=== PATIENT | female | born 1945 | race Caucasian/White ===

== ENCOUNTER 2016-09-09 04:51 | Inpatient (IN) ==
[2016-09-04 15:54] LABS: Basophils # (Auto) 0 K/mcL (0.0-0.3); Basophils % (Auto) 0.6 % (0.0-2.0); Eosinophils # (Auto) 0.1 K/mcL (0.0-0.7); Eosinophils % (Auto) 1.4 % (0.0-7.0); Granulocytes % (Auto) 45.1 % (38.0-78.0); Lymphocytes # (Auto) 3.4 K/mcL (1.5-4.8); Lymphocytes % (Auto) 47.7 % (15.5-49.0); Mean Cell Volume 93.7 fL (80.0-100.0); Mean Corpuscular HGB Conc 33.7 g/dL (31.0-36.0); Mean Corpuscular Hemoglobin 31.6 pg (26.0-34.0); Monocytes # (Auto) 0.4 K/mcL (0.1-0.9); Monocytes % (Auto) 5.2 % (1.0-12.0); Platelet Count 296 K/mcL (140-440); RBC 4.72 M/mcL (4.00-5.20); Red Cell Distribution Width 13.2 % (11.5-14.5)
[2016-09-04 15:55] LABS: Appearance,Urine CLEAR; Bacteria,Urine 0 /hpf (0); Bilirubin,Urine NEG (NEG); Color,Urine YELLOW; Glucose,Urine (UA) NEGATIVE (NEG); Leukocyte Esterase,Urine 75 /uL (NEG); Mucus,Urine FEW /hpf (0); Nitrate,Urine NEG (NEG); Protein,Urine NEG (NEG); Specific Gravity,Urine 1.023 (1.000-1.035); Urine Blood NEG mg/dL (<0.03); Urine Hyaline Cast 2 /lpf (0-2); Urine RBC 1 /hpf (0-1); Urine Squamous Epithelial Cell 8 /hpf (0-4); Urine Transitional Epi Cells 1 /hpf (0-2); Urine WBC 10 /hpf (0-4); Urobilinogen,Urine NEG (NEG)
[2016-09-04 16:06] LABS: Blood Urea Nitrogen 12 mg/dl (8-23)
[2016-09-09] MEDS ORDERED: PREGABALIN 75 MG CAPSULE PO SCH (06:00)
[2016-09-09] MEDS ORDERED: ceFAZolin 1 GM VIAL IV SCH (06:00)
[2016-09-09] MEDS ORDERED: ACETAMINOPHEN 500 MG TABLET PO SCH (06:00)
[2016-09-09] MEDS ORDERED: CELECOXIB 200 MG CAPSULE PO SCH (06:00)
[2016-09-09] MEDS ORDERED: oxyCODONE 10 MG TAB.ER.12H PO SCH (06:00)
[2016-09-09] MEDS ORDERED: GENTAMICIN SULFATE 800 MG/20 ML VIAL IR ONE (06:52)
[2016-09-09] MEDS ORDERED: SUCCINYLCHOLINE 20 MG/ML ML IV ONE (07:40)
[2016-09-09] MEDS ORDERED: TRANEXAMIC ACID 1,000 MG/10 ML VIAL IV ONE ×2 (07:40→09:15)
[2016-09-09] MEDS ORDERED: DEXAMETHASONE 10 MG/ML VIAL IV ONE (07:40)
[2016-09-09] MEDS ORDERED: MIDAZOLAM 5 MG/5 ML VIAL IV ONE (07:40)
[2016-09-09] MEDS ORDERED: LIDOCAINE HCL/PF 100 MG/5 ML SYRINGE IV ONE (07:40)
[2016-09-09] MEDS ORDERED: ROCURONIUM 10 MG/ML ML IV ONE (07:40)
[2016-09-09] MEDS ORDERED: PHENYLEPHRINE 10 MG/ML VIAL IV ONE (07:40)
[2016-09-09] MEDS ORDERED: PROPOFOL 200 MG/20 ML VIAL IV ONE (07:40)
[2016-09-09] MEDS ORDERED: MEPERIDINE 25 MG/ML SYRINGE IV PRN (08:33)
[2016-09-09] MEDS ORDERED: ONDANSETRON 4 MG/2 ML VIAL IV PRN ×2 (08:33→09:15)
[2016-09-09] MEDS ORDERED: LACTATED RINGERS 250 ML IV PRN (08:33)
[2016-09-09] MEDS ORDERED: NALOXONE HCL 0.4 MG/ML VIAL IV PRN (08:33)
[2016-09-09] MEDS ORDERED: diphenhydrAMINE 50 MG/ML VIAL IV PRN (08:33)
[2016-09-09] MEDS ORDERED: fentaNYL 100 MCG/2 ML VIAL IV PRN (08:33)
[2016-09-09] MEDS ORDERED: MEPERIDINE 50 MG/ML SYRINGE IM ONE (08:33)
[2016-09-09] MEDS ORDERED: BENZOCAINE/MENTHOL 1 LOZENGE PO PRN ×2 (08:33→09:15)
[2016-09-09] MEDS ORDERED: ePHEDrine 50 MG/ML AMPUL IV PRN (08:33)
[2016-09-09] MEDS ORDERED: FLUMAZENIL 0.1 MG/ML ML IV PRN (08:33)
[2016-09-09] MEDS ORDERED: IPRATROPIUM/ALBUTEROL 3 ML AMPUL.NEB NEB PRN (08:33)
[2016-09-09] MEDS ORDERED: HYDROmorphone 2 MG/ML SYRINGE IV PRN ×2 (08:33→09:15)
[2016-09-09] MEDS ORDERED: METOCLOPRAMIDE 10 MG/2 ML VIAL IV PRN (08:33)
[2016-09-09] MEDS ORDERED: METHOCARBAMOL 1,000 MG/10 ML VIAL IV PRN (08:33)
[2016-09-09] MEDS ORDERED: LACTATED RINGERS 1,000 ML IV SCH (08:45)
[2016-09-09] MEDS ORDERED: POLYETHYLENE GLYCOL 3350 17 GM PACKET PO PRN (09:15)
[2016-09-09] MEDS ORDERED: MAGNESIUM HYDROXIDE 30 ML ORAL.SUSP PO PRN (09:15)
[2016-09-09] MEDS ORDERED: TEMAZEPAM 15 MG CAPSULE PO PRN (09:15)
[2016-09-09] MEDS ORDERED: FLEETS ADULT ENEMA PR PRN (09:15)
[2016-09-09] MEDS ORDERED: ACETAMINOPHEN 325 MG TABLET PO PRN ×2 (09:15→09:19)
[2016-09-09] MEDS ORDERED: BISACODYL 10 MG SUPP.RECT PR PRN (09:15)
--- NOTE | 2016-09-09 09:15 | Brief Operative Note ---
Date of procedure: 09/09/16 Pre-op diagnosis: Left hip djd Post-op diagnosis: same Procedure: left kelsie cemented Grafts/Implants: Yes Anesthesia: GETA Complications: none Complications Description: 09/09/16 09:15 none Surgeon: Rj Apodaca Consultant In Ergonomics And Safety: Yannick Chao Estimated blood loss (cc): 150 Specimens Removed/Pathology: none sent Condition: stable Disposition: PACU
[2016-09-09] MEDS ORDERED: traMADol 50 MG TABLET PO PRN (09:19)
--- NOTE | 2016-09-09 09:36 | XRay Report ---
CLINICAL INFORMATION: Postsurgical follow-up COMPARISON: None. FINDINGS: Single intraoperative AP pelvis. Status post left total hip arthroplasty IMPRESSION: Intraoperative evaluation. Left total arthroplasty performed. Interpreted and Authenticated by: Neil Robles 09/09/16
--- NOTE | 2016-09-09 10:13 | XRay Report ---
CLINICAL INFORMATION: Postsurgical follow-up. TECHNIQUE: AP pelvis. Lateral left hip COMPARISON: None. FINDINGS: Status post left total hip arthroplasty. Alignment is anatomic. There is postsurgical soft tissue and intra-articular gas. IMPRESSION: Post left total hip arthroplasty. Interpreted and Authenticated by: Neil Robles 09/09/16
[2016-09-09] MEDS: 0.45 % SODIUM CHLORIDE 1,000 ML IV SCH ×2 (10:48→20:19)
[2016-09-09] MEDS: KETOROLAC 15 MG/ML VIAL IV PRN ×2 (10:50→16:53)
[2016-09-09] MEDS: HYDROcodone/APAP 10/325MG TABLET PO PRN ×3 (13:12→23:34)
[2016-09-09] MEDS: 0.9 % SODIUM CHLORIDE 10 ML SYRINGE IV SCH ×2 (13:13→20:08)
--- NOTE | 2016-09-09 15:27 | Discharge Summary ---
Ortho Discharge - NONI - Patient Instructions Diet: Regular Diet Activity: activity as tolerated, weight bearing as tolerated Total Hip Protocol: Follow activity instructions as provided by Physical Therapy. Dressing Care: May shower in 2 days - Follow Up Plan Disposition: Home, Self-Care Prognosis: Good Rehab Potential: Good I certify that the patient requires SNF services: No Overall status at discharge: patient is progressing back to baseline - Orders For Discharge Prescriptions: Aspirin [Ecotrin] 325 mg PO BID #60 tab.ec Docusate Sodium [Colace] 100 mg PO BID #60 capsule HYDROcodone/APAP 10/325MG [Dickens 10/325Mg] 1 - 2 tab PO Q4HP PRN #75 tablet PRN Reason: Pain
[2016-09-09] MEDS: ceFAZolin 1 GM VIAL IV SCH ×2 (15:55→22:24)
[2016-09-09] MEDS: SENNOSIDES 1 TABLET PO SCH (20:07)
[2016-09-09] MEDS: ASPIRIN 325 MG ENTERIC COATED TABLET PO SCH (20:07)
[2016-09-09] MEDS: DOCUSATE SODIUM 100 MG CAPSULE PO SCH (20:07)
[2016-09-09] MEDS: oxyCODONE 10 MG TAB.ER.12H PO SCH (20:08)
[2016-09-10] MEDS: 0.9 % SODIUM CHLORIDE 10 ML SYRINGE IV SCH ×3 (06:03→22:00)
[2016-09-10] MEDS: HYDROcodone/APAP 10/325MG TABLET PO PRN ×2 (06:50→17:00)
[2016-09-10] MEDS: PANTOPRAZOLE 40 MG TABLET PO SCH (06:51)
[2016-09-10] MEDS: KETOROLAC 15 MG/ML VIAL IV PRN ×2 (06:51→18:07)
--- NOTE | 2016-09-10 07:12 | Orthopedic Progress Note ---
Subjective Patient information: Note initiated : 09/10/16 at 7:10 am Service Date, if different from initiated Date: [] Patient: Lakisha Booker 71 y/o F admitted on 09/09/16 for Left Total Hip Arthroplasty Using Direct Superior . Chief Complaint: [Pt is stable this morning on post operative day 1 without any significant concerns or complaints. Patients vital signs have remained stable. Patients dressing is dry and exhibits a grossly intact neurovascular and neuromotor exam. Patients 10 point ROS is otherwise negative. ] Objective Vital signs: Vital Signs Temp Pulse Resp BP BP Pulse Ox 09/10/16 07:10 91 09/10/16 07:01 94 09/10/16 06:57 94 09/10/16 06:52 97.2 F L 59 L 14 134/74 99 09/10/16 06:15 94 09/10/16 03:48 97.8 F 66 14 122/76 98 09/10/16 03:25 95 09/10/16 02:32 96 09/10/16 02:30 84 L 09/10/16 01:47 94 09/09/16 23:49 91 09/09/16 23:12 98.4 F 78 14 150/73 95 09/09/16 23:00 95 09/09/16 21:35 93 09/09/16 19:45 92 09/09/16 19:27 97.9 F 80 14 123/76 93 09/09/16 19:00 93 09/09/16 17:00 95 09/09/16 16:00 97.6 F 77 136/70 95 09/09/16 15:00 94 09/09/16 12:27 80 117/65 97 09/09/16 12:12 66 150/81 97 09/09/16 11:58 63 136/70 95 09/09/16 11:43 60 134/77 97 09/09/16 11:34 62 135/68 96 09/09/16 11:25 64 133/79 92 09/09/16 11:16 95 09/09/16 11:13 60 133/69 96 09/09/16 10:58 65 124/65 92 09/09/16 10:42 62 18 137/71 95 09/09/16 10:18 98.0 F 66 18 138/55 96 09/09/16 10:05 68 17 121/51 93 09/09/16 09:50 68 15 137/57 96 09/09/16 09:35 97.3 F L 76 12 128/64 95 09/09/16 09:16 93 Intake and Output 09/09/16 09/10/16 09/10/16 21:59 05:59 13:59 Intake Total 2252 / 2252 150 / 150 Output Total 200 / 200 1250 / 1250 300 / 300 Balance 2051 -1100 / -1100 -300 / -300 Intake: IV 952 / 952 Sodium Chloride 0.45% 1, 952 / 952 000 ml @ 100 mls/hr IV . Q10H [facility] Rx#:[id number] Oral 1300 / 1300 150 / 150 Output: Void Amount 200 / 200 1250 / 1250 300 / 300 Other: Meal Dinner Percent of Meal Consumed 100% Feeding Ability Independent # Voids 1 Weight 274 lb Intake & Output: Intake & Output 09/09/16 09/10/16 09/10/16 21:59 05:59 13:59 Intake Total 2252 / 2252 150 / 150 Output Total 200 / 200 1250 / 1250 300 / 300 Balance 2051 -1100 / -1100 -300 / -300 Weight 274 lb Intake: IV 952 / 952 Sodium Chloride 0.45% 1, 952 / 952 000 ml @ 100 mls/hr IV . Q10H CRAIG Rx#:[id number] Oral 1300 / 1300 150 / 150 Output: Void Amount 200 / 200 1250 / 1250 300 / 300 Other: Meal Dinner Percent of Meal Consumed 100% Feeding Ability Independent # Voids 1 Incision: Yes healing Incision clean and dry: Yes Dressing: Yes clean, Yes dry Weight bearing status: full Neurological exam IM: Yes motor sensory intact, Yes neurovascular intact Extremities exam IM: Yes Foot pink and warm, Yes neurovascular intact - Labs CBC & BMP: 09/10/16 05:05 09/04/16 14:13 Labs: Orthopedic Labs 09/04/16 14:13 PT 13.0 INR 1.0 APTT 34 09/10/16 09/04/16 05:05 14:13 Hgb 14.9 Hct 35.5 L 44.2 Assessment and Plan (1) Hx of total hip arthroplasty Patient has been educated regarding wound care and dressings, follow up recommendations, and medication use. We will f/u with the patient within 2-3 weeks for wound check. Status: Acute
[2016-09-10] MEDS: oxyCODONE 10 MG TAB.ER.12H PO SCH ×2 (08:10→20:16)
[2016-09-10] MEDS: ASPIRIN 325 MG ENTERIC COATED TABLET PO SCH ×2 (08:10→20:16)
[2016-09-10] MEDS: DOCUSATE SODIUM 100 MG CAPSULE PO SCH ×2 (08:10→20:16)
[2016-09-10] MEDS: HYDROCHLOROTHIAZIDE 12.5 MG CAPSULE PO SCH (08:11)
[2016-09-10] MEDS: amLODIPine 10 MG TABLET PO SCH (08:11)
[2016-09-10] MEDS ORDERED: GLUCOSAMINE 1000 MG PO SCH (09:00)
[2016-09-10] MEDS: SENNOSIDES 1 TABLET PO SCH (20:16)
[2016-09-11] MEDS: HYDROcodone/APAP 10/325MG TABLET PO PRN ×2 (03:07→07:52)
[2016-09-11] MEDS: 0.9 % SODIUM CHLORIDE 10 ML SYRINGE IV SCH (05:38)
--- NOTE | 2016-09-11 07:26 | Orthopedic Progress Note ---
Subjective Patient information: Note initiated : 09/11/16 at 7:24 am Service Date, if different from initiated Date: [] Patient: Lakisha Booker 71 y/o F admitted on 09/09/16 for Left Total Hip Arthroplasty Using Direct Superior . Chief Complaint: [Alert and walking well with minimal pain and tolerating a normal diet] Objective Vital signs: Vital Signs Temp Pulse Resp BP Pulse Ox 09/11/16 04:27 96 09/11/16 03:17 97.4 F L 72 20 127/72 95 09/11/16 02:12 95 09/11/16 00:23 96 09/10/16 23:35 97.8 F 73 20 124/76 96 09/10/16 22:21 95 09/10/16 22:20 85 L 09/10/16 22:19 96 09/10/16 22:15 85 L 09/10/16 21:00 95 09/10/16 20:06 96 09/10/16 19:41 97.7 F 81 20 130/76 96 09/10/16 19:00 96 09/10/16 17:00 95 09/10/16 15:46 94 09/10/16 15:33 97.2 F L 57 L 14 171/68 96 09/10/16 14:00 97 09/10/16 12:00 94 09/10/16 11:42 97.6 F 73 14 152/68 97 09/10/16 10:00 96 Intake and Output 09/10/16 09/11/16 09/11/16 21:59 05:59 13:59 Intake Total 480 / 480 200 / 200 Output Total 1025 / 1025 700 / 700 200 / 200 Balance -545 / -545 -500 / -500 -200 / -200 Intake: Oral 480 / 480 200 / 200 Output: Void Amount 1025 / 1025 700 / 700 200 / 200 Other: Meal Dinner Percent of Meal Consumed 100% # Voids 1 Weight 274 lb Intake & Output: Intake & Output 09/10/16 09/11/16 09/11/16 21:59 05:59 13:59 Intake Total 480 / 480 200 / 200 Output Total 1025 / 1025 700 / 700 200 / 200 Balance -545 / -545 -500 / -500 -200 / -200 Weight 274 lb Intake: Oral 480 / 480 200 / 200 Output: Void Amount 1025 / 1025 700 / 700 200 / 200 Other: Meal Dinner Percent of Meal Consumed 100% # Voids 1 Incision: Yes healing Incision clean and dry: Yes Dressing: Yes clean Weight bearing status: full Neurological exam IM: Yes oriented X3, Yes neurovascular intact Extremities exam IM: Yes Foot pink and warm (dc home today), Yes neurovascular intact - Labs CBC & BMP: 09/10/16 05:05 09/04/16 14:13 Labs: Orthopedic Labs 09/04/16 14:13 PT 13.0 INR 1.0 APTT 34 09/10/16 09/04/16 05:05 14:13 Hgb 14.9 Hct 35.5 L 44.2
[2016-09-11] MEDS: PANTOPRAZOLE 40 MG TABLET PO SCH (07:52)
[2016-09-11] MEDS: DOCUSATE SODIUM 100 MG CAPSULE PO SCH (08:54)
[2016-09-11] MEDS: amLODIPine 10 MG TABLET PO SCH (08:54)
[2016-09-11] MEDS: HYDROCHLOROTHIAZIDE 12.5 MG CAPSULE PO SCH (08:55)
[2016-09-11] MEDS: ASPIRIN 325 MG ENTERIC COATED TABLET PO SCH (08:55)
== END 2016-09-11 09:30 | disposition home or self-care (01) | DRG 470 ==
LOC: MEDSUR 04:51
PROVIDERS: ADMIT Orthopaedic Surgery; ATTEND Orthopaedic Surgery